=== PATIENT | male | born 1950 | race Caucasian/White ===

== ENCOUNTER 2020-11-21 08:38 | Outpatient (REF) | payer MEDICARE, SELFPAY ==
--- NOTE | ~2020-11-21 | US_ITS ---
EXAMINATION: US RETROPERITONEAL LIMITED (RENAL ONLY) CLINICAL INFORMATION: Calculus of kidney. COMPARISON: Renal only ultrasound dated 08/11/2019 and 02/12/2019. KUB dated 06/11/2018. TECHNIQUE: Real-time imaging of the kidneys. FINDINGS: RIGHT KIDNEY: 11.5 x 6.1 x 5.6 cm (SAG x AP x TRV). The kidney is normal in size, contour, and echogenicity. Renal cortical thickness is normal. There small anechoic cyst lower pole measuring 0.8 x 0.6 0.8 cm. There are several echogenic cortical cyst stones. 1. Lower pole stone measuring 0.3 x 0.2. 2. Lower pole stone measures 0.2 x 0.1 cm. 3. Lower pole stone measures 0.3 x 0.2 cm. There is no caliectasis or hydronephrosis. LEFT KIDNEY: 11.9 x 5.6 x 5.9 cm (SAG x AP x TRV). The kidney is normal in size, contour, and echogenicity. Renal cortical thickness is normal. There are 2 3 anechoic cyst in lower pole measuring 0.8 x 0.6 x 0.7 cm and 0.7 x 0.5 x 0.7 cm and a midpole cyst measuring 0.6 was 0.4 x 0.5 cm. There are several echogenic cortical sulci. 1. Midpole stone measuring 0.2 x 0.1 cm. 2. Midpole stone measures 0.3 x 0.2 cm. 3. Lower pole stone measuring 0.3-0.2 cm. There is no caliectasis or hydronephrosis. US/US renal BI IMPRESSION: Bilateral nonobstructive echogenic cortical stones. No hydronephrosis. No change in echogenic calculi from last study Bilateral renal cysts. The cyst in the right kidney lower pole is new.
== END 2020-11-21 08:39 | disposition home or self-care (01) ==
LOC: HO.US 08:38
PROVIDERS: Visit Provider Urology
DX: N20.0 Calculus of kidney (principal)
CPT/HCPCS: 76775

== ENCOUNTER → 2020-11-30 14:32 | Outpatient (BNVA) | payer MEDICARE, SELFPAY | PROVIDERS: PCP Internal Medicine; Visit Provider Urology | DX: Z13.89 Encounter for screening for other disorder (principal) | CPT/HCPCS: 99212 ==

== ENCOUNTER 2021-04-05 09:11 | Outpatient (REF) | payer MEDICARE, SELFPAY ==
--- NOTE | ~2021-04-05 | US_ITS ---
EXAMINATION: US RETROPERITONEAL LIMITED (RENAL ONLY) CLINICAL INFORMATION: Calculus kidney. COMPARISON: Renal ultrasound 11/21/2020 and 08/11/2019. KUB 06/11/2018. TECHNIQUE: Real-time imaging of the kidneys. FINDINGS: RIGHT KIDNEY: 9.4 x 4.2 x 6.3 cm (SAG x AP x TRV). The kidney is normal in size, contour, and echogenicity. Renal cortical thickness is normal. There are multiple small subcentimeter cysts. There are 3 small echogenic densities in the lower pole suggestive of stones measuring 3 to 4 mm. No hydronephrosis. LEFT KIDNEY: 9.3 x 5.2 x 4.4 cm (SAG x AP x TRV). The kidney is normal in size, contour, and echogenicity. Renal cortical thickness is normal. There are 3 small cysts, largest measuring 1 x 0.7 x 0.8 cm in the midpole. There are 4 echogenic densities in the mid and lower pole suggestive of stones, largest measuring 5 to 6 mm. No hydronephrosis. The liver is echogenic. US/US renal BI IMPRESSION: Bilateral renal stones. Small bilateral renal cysts.
== END 2021-04-05 09:12 | disposition home or self-care (01) ==
LOC: HO.US 09:11
PROVIDERS: Visit Provider Urology
DX: N20.0 Calculus of kidney (principal)
CPT/HCPCS: 76775